=== PATIENT | female | born 1925 | race Caucasian/White ===

== ENCOUNTER 2016-12-17 06:00 | Inpatient (IN) ==
[~2016-12-17 06:00] MED LIST: ONDANSETRON 4 MG/2 ML VIAL IV PRN
[2016-12-17 08:29] LABS: Basophils % 1.2 % (0.0-0.8); Eosinophils # 0.2 10*3/uL (0.0-0.87); Eosinophils % 5.8 % (0.00-10.9); Hematocrit 36.6 VOL% (35.7-47.0); Hemoglobin 11.9 GM/DL (12.0-16.0); Immature Granulocytes % 0.3 %; Immature Granulocytes Absolute 0.01 #; Lymphocytes # 1.3 10*3/uL (1.4-4.0); Lymphocytes % 37.3 % (21.3-54.2); Mean Corpuscular HGB Conc 32.5 GM/DL (32-36); Mean Corpuscular Hemoglobin 29 PG (27-34); Mean Corpuscular Volume 89.3 FL (87-102); Mean Platelet Volume 10.1 FL (9.6-12.0); Monocytes # 0.4 10*3/uL (0.11-0.8); Monocytes % 11.4 % (1.7-12.7); Neutrophils # 1.5 10*3/uL (1.4-7.4); Platelet Count 184 T/CUMM (130-400); Red Cell Distribution Width 13.8 % (9.3-17.3); White Blood Count 3.4 T/CUMM (4-12)
[2016-12-17 09:01] LABS: Albumin 3.3 G/DL (3.4-5.0); Bilirubin,Total 0.6 MG/DL (0.2-1.0); Free T4 (Free Thyroxine) 1.15 NG/DL (0.76-1.46); Magnesium 2.4 MG/DL (1.8-2.4); Osmolality,Calculated 285.8 MOS/KG (273-304); Potassium 4.1 MMOL/L (3.5-5.1); Thyroid Stimulating Hormone 0.918 uIU/ml (0.358-3.74)
[2016-12-17] MEDS: DEXTROSE 5% NACL 0.45% 1,000 ML IV SCH ×2 (09:22→09:23)
--- NOTE | 2016-12-17 10:32 | Order Completion Report ---
See report scanned to EMR
--- NOTE | 2016-12-17 11:32 | Pulmonology History & Physical ---
History of Present Illness Chief complaint: Vomiting 6 or more times per day History of present illness: Ms. Ford is a 89 year old white female from [facility]. I saw this patient in my office 12/04/2016. At that time she was complaining of nausea vomiting weight loss she had abnormal red blood cell indices and she had iatrogenic hyperthyroidism. It was hard to pin her down but she was basically having significant gastroesophageal reflux. The reflux material was described as foamy and white. She has some nonspecific abdominal pain which seemed to be sporadic and of short duration and seem to occur before the gastroesophageal reflux. She said Librax may have helped some but she was not sure. She has had weight loss over the past year. An admission to the hospital in April 2015 she weighed 164.6 pounds. This admission she weighs 135 pounds. So that is approximately 30 pounds over the past 1-1/2 years. At the time of her office visit on 12/04/2016. I stop asked her to stop her Aricept. Note that she has a very strong family history of Alzheimer's disease. She was on Synthroid 0.15 mg daily and her TSH was decreased and her free T4 was elevated. I cut her dose back to 150 mcg on Wednesdays and Fridays and today's TSH and free T4 are normal. I also discontinued her Lipitor. Her daughter said she had read that Benicar could cause weight loss. I think this is probably secondary to change of taste but we stopped it. Patient was not taken her Coreg on a regular basis because he would get stuck in her mouth because of pill is sticky when his wet so I asked her to take this with peanut butter. Patient's daughters called several times and said the patient is not eating and looks terrible. The patient is not able to eat several times a day. Sometimes she vomits shortly afterwards and sometimes she does not. She is to have a bowel movement every day now she has one every third day she is noting no abnormalities of the stools. She also has episodes of repetitive vomiting without having eaten anything prior to the vomiting. For example she said several nights ago she got up to go to the bathroom during the night and vomited 3 times within a short period of time. What she vomits up is always sinus foamy and clear and sticky. She has seen no blood. 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 She says after she vomits she feels fairly normal. The patient denies solid dysphagia she denies bleeding from any site. There has been no true syncope. It does not seem to be a problem with headaches. As far as I can tell there have been no TIAs and no seizure activity. She denies anything suggestive of cardiac pain or cardiac arrhythmia. The remainder of the review of systems is negative. Patient's allergies . Penicillin. Demerol. Norvasc. Lipitor caused skeletal muscle pain. Latex caused a rash. Tigan, Compazine and Reglan caused her to be shaky. Patient did not report all of these allergies to the admitting staff but these are present on the therapy review of her old chart Home medicines are. Synthroid 150 mcg on Wednesdays and Fridays. Benicar has been stopped. Atrovent nasal spray. Flonase nasal spray. Pepcid 20 mg twice daily. Plavix 75 mg daily. Coreg 3.125 daily. Lipitor 40 daily has been stopped. Aspirin 81 mg daily lips been stopped. Flu vaccination was given 2016. Pneumovax was given 1997 Past history. Rheumatoid arthritis. Reflux esophagitis. Gastroesophageal reflux disease. Colon polyps. Hypothyroidism. Iatrogenic hyperthyroidism. History of hyperparathyroidism history of iron deficiency anemia. Tonsillectomy 1964. Hysterectomy and repair of umbilical hernia in 1964. Appendectomy 1946. 2 large parathyroid tumors removed at [facility] in 1994. She was treated with radioactive iodine around that time. She has had a broken nose broken arm in a shoulder fracture. She had left knee surgery for torn meniscus in 2011. In the past she was followed by Dr. Garg at the [facility] from a rheumatology standpoint. She was also followed by Dr. Montes from an endocrinology standpoint. Because this was a long trip she switched to Dr. Holly Alfredo for endocrinology and Dr. Bob Moore for rheumatology. In the past she has had breast cyst removed by Dr. Tone Davidson. The patient was hospitalized in April 2015 for possible chest pain. She has arteriosclerotic heart disease and she had a stent placed in April 2015. 09/13/[address] a CT of the abdomen and pelvis. This showed a mass lesion in the left posterior pelvis measuring 5.3 x 3.0 x 4.4 cm. This was thought to possibly be an ovarian mass. Ultrasound later showed this to be cystic. There was minimal diverticulosis without any diverticulitis. There is vascular calcification and mild facet arthropathy of the lumbar spine seen. The pelvic ultrasound was done 10/18/2016 and showed a complex cystic area in the left adnexa. 12/10/2013 bone density showed an AP spine T score of -2.0 and a femur T score of -1.3 all consistent with osteopenia. This represents an improvement compared to previous studies. The patient gets yearly mammograms and these have been negative Social history. Patient says her [id number] Marla Regalado has seen me in the past. The patient is retired housewife. She had one year of college and she went to many seminars. She had voice training. She is complaining in the past she can no longer saying. 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 On 08/23/2015 she told me her [place] Ford in May 2015. She told me that her daughter never uses [facility] because of high [facility] treated Mr. Ford. Family history. Positive for thyroid disease, deafness, colon polyps, arthritis and sudden . Her of prostate cancer. and daughter have had kidney stones. The great grandson had a brain tumor. On 05/09 the patient told me that her doctors become from [facility] in [facility] studying her family because it is large and there is a high incidence of Alzheimer's disease Lab. White count is 3444 segs, 37 lymphs, 11 monos, 6 eosinophils. H&H 11.9/ 36.6 with normal indices and red blood cell distribution width. Platelets 184, 000 with normal MPV. Electrolytes are normal. Creatinine is 1.2. BUN is 26. Glucose is 81. Liver function tests are normal protein is low at 6.0 and albumin is slightly low at 3.3 globulin is 2.7. Thyroid function tests are normal. No other labs available. Physical exam. Vital signs. See below. Psychiatric oriented 3. Intelligent pays attention and does fairly well with a history but we have to drag it out of her. Her short-term memory is only fair. Head eyes ears nose and throat are normal. Note that the daughter says she appears to be jaundiced. Total bilirubin is 0.6 Neck is symmetrical kyphotic with no masses. Patient has thickened soft tissue over the right anterior neck which been present on a multiyear basis. Lymphatics no submandibular cervical supraclavicular or epitrochlear adenopathy Chest. Symmetrical and wheeze free with no tender areas Heart. PMI slightly lateral. I do not hear murmur rub or gallop Breast deferred Abdomen. Slight tenderness in the periumbilical area. No mass-effect. Aorta was not palpated. Bowel sounds are normal and rectal deferred Extremities no clubbing no edema no deep venous thrombophlebitis Musculoskeletal. Mild age-appropriate loss normal curvature cervical thoracic lumbar spine met neck is somewhat short. Arterials. Carotids are decreased with no bruits. Upper extremity pulses are palpable. Lower extremity pulses are nonpalpable. No evidence of lower extremity ischemia. Venous exam neck upper and lower extremities are normal. Skin prep over the dorsum of both upper extremities no lesions on the face. See neck. No other areas of skin were examined. Neurological. Cranial nerves are intact with some mild to moderate decreased hearing acuity bilaterally long track motor function is intact. The remainder the physical exam is noncontributory Impression. 1. Intractable acute and recurrent nausea with decreased ability to eat and drink. Etiology undetermined. Seems to originate from the stomach. Consider delayed gastric emptying and pylorospasm. No past history of gastroesophageal reflux disease. Look for evidence of pancreatic dysfunction and look for evidence of cancer. We will also look at other areas including the central nervous system. 2. Left adnexal mass on CT of the abdomen done in August 2016 and ultrasound of the pelvis done October 2016. Repeat studies and compare. 3. Hypothyroid. Euthyroid on replacement. 4. Hypertension. Good control 5. Asthma. Good control 6. Rheumatoid arthritis and degenerative joint disease. Good control 7. 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 8. History of iron deficiency anemia 9. Arteriosclerotic heart disease. Stent placed April 2015. 10. Strong family history of Alzheimer's disease. See family history. 11. Past history of gastroesophageal reflux was suspected microaspiration exacerbating pulmonary problems. 12. History of 2 large parathyroid tumors previously removed in 1994 to Plan. 1. IV fluids 2. CT of the abdomen and pelvis with contrast 3. CT of the brain with contrast 4. GI consultation. 5. CA 125 and CA 19-9 6. Amylase and lipase 7. PTH, phosphorus 8. See Home Medications Medication Instructions Recorded Confirmed Type Olmesartan Medoxomil [Benicar] 40 mg PO DAILY 04/19/15 10/22/15 History Carvedilol [Coreg] 3.125 mg PO BID #60 tablet 04/22/15 10/22/15 Rx Clopidogrel [Plavix] 75 mg PO DAILY #30 tablet 04/22/15 10/22/15 Rx Aspirin [Ecotrin] 81 mg PO DAILY 10/22/15 10/22/15 History Atorvastatin [Lipitor] 40 mg PO DAILY 10/22/15 10/22/15 History Famotidine Tab [Pepcid Tab] 20 mg PO BID 10/22/15 10/22/15 History Fluticasone Propionate 2 spray BOTH NARES DAILY 10/22/15 10/22/15 History [Fluticasone 50 mcg Nasal [place]] Ipratropium 0.06% Nasal [place] 2 spray BOTH NARES TID 10/22/15 10/22/15 History [Atrovent 0.06% Nasal [place]] Levothyroxine Tab [Synthroid Tab] 150 mcg PO DAILY 10/22/15 10/22/15 History Allergies Allergy/AdvReac Type Severity Reaction Status Date / Time latex Allergy Intermediate RASH Verified 04/21/15 10:37 Penicillins Allergy RASH Verified 04/19/15 13:45 metoclopramide [From Reglan] AdvReac Severe Shakiness Verified 04/21/15 10:37 meperidine [From Demerol] AdvReac Vomiting Verified 04/19/15 13:45 prochlorperazine AdvReac Shakiness Verified 04/21/15 10:37 [From Compazine] Trimethobenzamide AdvReac Shakiness Verified 04/21/15 10:37 [From Tigan] Medical,Surgical,& Family Hx - Medical History Cardio: History of: CAD, Hypertension Endocrine: History of: Dyslipidemia, Thyroid Disorder Respiratory: History of: Bronchitis - Surgical History Cardiac Surgeries: Sugical HX of: Cardiac Catheterization (stent x's 1) Abdominal Surgeries: Surgical HX of: Abdominal Surgery Reproductive Surgeries: Surgical HX of;: Hysterectomy Orthopedic Surgeries: Surgical HX of;: Total Knee Replacement - Social History Smoking Status: Never smoker Frequency of Alcohol Use: None Type of Drug Use: None Results - Labs CBC & BMP: 12/17/16 07:45 12/17/16 07:45 Exam ([facility]) H&P - Constitutional Vitals: Period Temp Pulse Resp BP Sys/House Pulse Ox Last 24 Hr 97.5 F 53 18 153/59 95
[2016-12-17] MEDS: CARVEDILOL 3.125 MG TABLET PO SCH ×2 (12:00→21:03)
[2016-12-17] MEDS: FAMOTIDINE 20 MG TABLET PO SCH ×2 (12:00→21:03)
--- NOTE | 2016-12-17 12:14 | Gastrointestinal Consult Note ---
<Ginger Newberry - Last Filed: 12/17/16 12:08> Assessment and Plan (1) Abdominal pain Status: Acute Assessment and plan: 12/17-admitted with several month history of abdominal pain (epigastric), nausea and vomiting episodes. 60 pound weight loss in the last year and a half. Prior endoscopy done at endoscopic clinic. No prior history of gallbladder disease reported. Noted findings on CT in August of left pelvic mass, post oophorectomy. Scheduled for follow-up ultrasound this week. CT of abdomen pending for today. Obtain abdominal ultrasound as well as go ahead and obtain pelvic ultrasound in the morning to send to Dr. Davidson at the same time. Plan an addendum to followed by Dr. Brooke. Current Visit: Yes History of Present Illness Chief complaint: Abdominal pain, nausea, vomiting History of present illness: Ms. Ford is a 89 year old female who was admitted to the hospital today for several month history of abdominal pain with associated nausea and vomiting. Patient is a fairly good historian however her daughter is at bedside and assists in history taking. Patient has a prior history of RA, iron deficiency anemia, hyperthyroidism, and hyperparathyroidism. Patient states that in March of this year she began having onset of some upper abdominal pain with associated nausea and vomiting type episodes. She states that the pain many times was precipitated by ingestion of a meal. She states that this and she would eat, she would have a cramping sensation in her epigastric region with nausea and some regurgitation of what she calls clear fluid are at times frothy white fluid. She states that this is gone on for several months at times worse than others. She reports that she has lost approximately 60 pounds over the last year and a half. Her spouse 2 years ago when she does report a decreased appetite and intake but relates this to not fixing food for herself daily. Patient states that she has had no changes in her bowel habits other than some constipation due to decreased intake. She denies any melena or hematochezia. She denies any coffee-ground emesis or hematemesis. She denies any NSAID use. She denies any dysphagia or dyspepsia symptoms. She is noted to have Plavix on her home medication list but states this was discontinued 2-3 months ago in which she was originally placed on this following an NC. She has had endoscopy done in the past by Dr. Ford at the endoscopic clinic but states it has been several years. She does not recall having an upper scope in the past however her last colonoscopy showed colon polyps which were removed. Patient had a CT of the abdomen done in August and at that time she was found to have a left pelvic mass which was initially felt to be potentially a malignancy however she is followed regularly by Dr. Davidson for this. Her last ultrasound in October showed this to be a complex cystic area. She is scheduled later this week for repeat ultrasound. Home Medications Medication Instructions Recorded Confirmed Type Olmesartan Medoxomil [Benicar] 40 mg PO DAILY 04/19/15 10/22/15 History Carvedilol [Coreg] 3.125 mg PO BID #60 tablet 04/22/15 10/22/15 Rx Clopidogrel [Plavix] 75 mg PO DAILY #30 tablet 04/22/15 10/22/15 Rx Aspirin [Ecotrin] 81 mg PO DAILY 10/22/15 10/22/15 History Atorvastatin [Lipitor] 40 mg PO DAILY 10/22/15 10/22/15 History Famotidine Tab [Pepcid Tab] 20 mg PO BID 10/22/15 10/22/15 History Fluticasone Propionate 2 spray BOTH NARES DAILY 10/22/15 10/22/15 History [Fluticasone 50 mcg Nasal [place]] Ipratropium 0.06% Nasal [place] 2 spray BOTH NARES TID 10/22/15 10/22/15 History [Atrovent 0.06% Nasal [place]] Levothyroxine Tab [Synthroid Tab] 150 mcg PO DAILY 10/22/15 10/22/15 History Allergies Allergy/AdvReac Type Severity Reaction Status Date / Time Penicillins Allergy RASH Verified 12/17/16 17:11 atorvastatin [From Lipitor] AdvReac Muscle Pain Verified 12/17/16 17:11 meperidine [From Demerol] AdvReac Vomiting Verified 12/17/16 17:11 Medical,Surgical,& Family Hx - Medical History Cardio: History of: CAD, Hypertension Endocrine: History of: Dyslipidemia, Thyroid Disorder Respiratory: History of: Bronchitis - Surgical History Cardiac Surgeries: Sugical HX of: Cardiac Catheterization (stent x's 1) Abdominal Surgeries: Surgical HX of: Abdominal Surgery Reproductive Surgeries: Surgical HX of;: Hysterectomy Orthopedic Surgeries: Surgical HX of;: Total Knee Replacement - Social History Smoking Status: Never smoker Frequency of Alcohol Use: None Type of Drug Use: None 12 point system: reviewed and no additional remarkable complaints except as stated - Constitutional Constitutional: Present: as per HPI, weight loss - EENT Eyes: Present: as per HPI Ears: Present: as per HPI Nose, mouth and throat: Present: as per HPI - Cardiovascular Cardiovascular: Present: as per HPI - Respiratory Respiratory: Present: as per HPI - Gastrointestinal Gastrointestinal: Present: as per HPI, abdominal pain, dysphagia, heartburn, nausea, vomiting - Genitourinary Genitourinary: Present: as per HPI - Musculoskeletal Musculoskeletal: Present: as per HPI - Neurological Neurological: Present: as per HPI - Psychiatric Psychiatric: Present: as per HPI - Endocrine Endocrine: Present: as per HPI - Hematologic/Lymphatic Hematologic/Lymphatic: Present: as per HPI Exam - Constitutional Vitals: Period Temp Pulse Resp BP Sys/House Pulse Ox Last 24 Hr 97.5 F 53 18 153/59 95 General appearance: normal weight, no acute distress - Head Head exam: Present: normal inspection, normocephalic - Eye Eye exam: Present: other (Lids and conjunctivae are unremarkable). Absent: scleral icterus - ENT ENT exam: Present: normal exam, normal oropharynx - Neck Neck exam: Present: normal inspection - Respiratory Respiratory exam: Present: clear to auscultation bilaterally. Absent: rales, rhonchi, wheezes - Cardiovascular Cardiovascular exam: Present: regular rate and rhythm. Absent: diastolic murmur , JVD, systolic murmur - GI/Abdominal GI/Abdominal exam: Present: normal bowel sounds, soft. Absent: ascites, distended, mass, organomegaly, tenderness - Extremities Exam Extremities exam: Present: normal inspection, full ROM - Back Exam Back exam: Present: normal inspection - Neurological Exam Neurological exam: Present: alert, oriented X3 - Psychiatric Psychiatric exam: Present: normal affect, normal mood - Skin Skin exam: Present: normal color, warm, dry Results - Labs CBC & BMP: 12/17/16 07:45 12/17/16 07:45 Lab Results: I have reviewed the past 24 hour labs <Misbah Brooke - Last Filed: 12/17/16 22:18> History of Present Illness History of present illness: Ms. Ford is a 89 year old female Exam - Constitutional Vitals: Period Temp Pulse Resp BP Sys/House Pulse Ox Last 24 Hr 97.3 F-98.2 F 49-54 16-18 132-175/53-64 95-98 Results - Labs CBC & BMP: 12/17/16 07:45 12/17/16 07:45
[2016-12-17] MEDS ORDERED: DICLOFENAC 1.3% PATCH 5/PACK TRANSDERM SCH (13:00)
[2016-12-17 13:40] LABS: Parathyroid Hormone Intact 97.7 PG/ML (14-72)
[2016-12-17 13:51] LABS: Phosphorous 2.3 MG/DL (2.5-4.9)
[2016-12-17 14:31] LABS: Cancer Antigen 19-9 5.1 U/ML (0-37)
[2016-12-17] MEDS: DICLOFENAC 1.3% PATCH 5/PACK TRANSDERM SCH ×2 (14:54→21:03)
[2016-12-17] MEDS: FLUTICASONE 50 MCG NASAL SPRAY 16 GM BOTTLE BOTH NARES SCH (14:56)
[2016-12-17] MEDS: IPRATROPIUM 0.06% NASAL SPRAY 15 ML BOTTLE BOTH NARES SCH (14:57)
[2016-12-17] MEDS: CLOPIDOGREL 75 MG TABLET PO SCH (15:00)
[2016-12-17 15:38] LABS: Apearance,Urine CLEAR (Clear); Bilirubin,Urine Negative (Negative); Blood, Urine Negative (Negative); Glucose,Urine (UA) Negative (Negative); Ketones,Urine Negative (Negative); Mucus,Urine Occasional /LPF (Occasional); Nitrite,Urine Negative (Negative); Protein,Urine Negative; Squamous Epithelial Cell,Urine Occasional /HPF (0-10); Urine Color Straw (Yellow); Urine Specific Gravity 1.005 (1.001-1.035); Urine Urobilinogen < 2.0 EU/DL (0.2-1.0); WBC,Urine <1 /HPF (0-6)
--- NOTE | 2016-12-17 15:39 | CT Report ---
CT head/brain wo con Indication: Persistent nausea Comparison: CT brain dated October 24, 2015 Technique: Multiple axial tomographic images of the brain were obtained without the use of intravenous contrast. Findings: Midline structures are nondisplaced. There is no convincing evidence of acute intracranial hemorrhage . Moderate global volume loss present. Mild periventricular and subcortical hypoattenuation noted which is nonspecific but consistent with chronic microvascular ischemic change. Demyelinating process and vasculitis less likely considerations. Atherosclerotic calcifications demonstrated. The visualized paranasal sinuses and bilateral mastoid air cells are predominantly clear. IMPRESSION: No acute intracranial abnormality demonstrated. Probable chronic microvascular ischemic change and volume loss. The CT exam was performed using one or more of the following dose reduction techniques: Automated exposure control, adjustment of the mA and/or kV according to patient size, or use of iterative reconstruction technique. PROCEDURE INTERPRETED AT [facility] DEPARTMENT OF RADIOLOGY Final Report Signed by: Dr Hilario Horowitz
--- NOTE | 2016-12-17 16:19 | CT Report ---
Exam: CT abdomen and pelvis with intravenous contrast Exam date: 12/17/2016 3:24 PM Clinical History: 89 years,Female, persistent nausea and abdominal pain, generalized Technique: Axial computed tomography images of the abdomen and pelvis with intravenous contrast. All CT scans at this facility use one or more dose reduction techniques. Automated exposure control, MA/KV adjustment per patient size (including targeted exam Square dose is matched to indication) or iterative reconstruction technique Comparison: September 13, 2016 Findings: Lower thorax: No acute pathology within the lung bases. Abdomen: Liver: Mildly enlarged and hypoattenuating. Simple cyst are unchanged. Gallbladder and bile ducts: Question small stones and/or sludge within a normal-appearing gallbladder. Pancreas: Pancreas is normal. Spleen: Spleen is normal. Adrenals: No adrenal mass. Kidneys and ureters: No stones. Stomach and bowel: No hydronephrosis scattered colonic diverticula. No associated inflammatory changes. Appendix: No secondary findings to suggest appendicitis. Pelvis: Bladder: Partially decompressed Reproductive: Prior hysterectomy. 5.3 x 2.7 cm left adnexal cyst results in mild mass effect on the distal left ureter . Abdomen and pelvis: Intraperitoneal space: No pneumoperitoneum. No free intraperitoneal fluid Bones/joints: Degenerative changes throughout the lower lumbar facets, sacroiliac joints and symphysis.. Soft tissues: No mass Vasculature: No aortic aneurysm. Atheromatous calcifications noted along the aorta and branch vessels. Lymph nodes: No adenopathy Impression: 1. Diverticulosis coli 2. Hepatomegaly with steatosis 3. Question cholelithiasis, correlate with dedicated ultrasound 4. Stable left adnexal cyst PROCEDURE INTERPRETED AT [facility] DEPARTMENT OF RADIOLOGY Final Report Signed by: Vinicius Kim MD
[2016-12-17] MEDS: ASPIRIN EC 81 MG TABLET PO SCH (16:56)
[2016-12-18] MEDS: IPRATROPIUM 0.06% NASAL SPRAY 15 ML BOTTLE BOTH NARES SCH ×4 (00:22→21:04)
[2016-12-18] MEDS: DEXTROSE 5% NACL 0.45% 1,000 ML IV SCH ×3 (00:55→16:05)
[2016-12-18] MEDS: FLUTICASONE 50 MCG NASAL SPRAY 16 GM BOTTLE BOTH NARES SCH (08:18)
[2016-12-18] MEDS: CARVEDILOL 3.125 MG TABLET PO SCH ×2 (08:18→20:47)
[2016-12-18] MEDS: FAMOTIDINE 20 MG TABLET PO SCH ×2 (08:18→20:47)
[2016-12-18] MEDS: ASPIRIN EC 81 MG TABLET PO SCH (08:18)
[2016-12-18] MEDS: LEVOTHYROXINE 150 MCG TABLET PO SCH (08:18)
[2016-12-18] MEDS: CLOPIDOGREL 75 MG TABLET PO SCH (08:18)
--- NOTE | 2016-12-18 08:26 | Ultrasound Report ---
US transvaginal Indication: History of left pelvic cystic mass Comparison: Pelvic ultrasound October 18, 2016 Technique: Multiple longitudinal and transverse sonographic images of the pelvis were obtained with transabdominal probe. Transvaginal probe was then utilized for further evaluation secondary to poor imaging with transabdominal probe. Findings: History of prior hysterectomy. Right ovary not visualized. Patient states left ovary was removed. There is a complex cystic mass within the left adnexal region measuring up to 4.8 x 2.3 x 3.2 cm. Considering change in technique, this has not significantly changed from study dated October 18, 2016 IMPRESSION: As above. PROCEDURE INTERPRETED AT [facility] DEPARTMENT OF RADIOLOGY Final Report Signed by: Dr Hilario Horowitz
--- NOTE | 2016-12-18 08:31 | Ultrasound Report ---
US abdomen Indication: Abdominal pain, nausea vomiting Comparison: CT abdomen pelvis December 17, 2016 Technique: Multiple longitudinal and transverse real-time sonographic images of the abdomen are obtained. Findings: The liver measures 16 cm. A couple of small hepatic cysts are demonstrated measuring up to 1.4 and 0.9 cm respectively. These are located within the left hepatic lobe. Small-volume cholelithiasis. There is no significant gallbladder distention or wall thickening. The common bile duct measures 0.5 cm in diameter. There is no evidence of intrahepatic ductal dilatation. The right and left kidneys measure 9.6 cm and 9.7 cm, respectively. There is no evidence of hydronephrosis. Hyperechoic renal parenchyma suggestive of medical renal disease with some cortical thinning. The spleen measures 10.5 cm without focal abnormality. Evaluation of the pancreas limited secondary to bowel gas.. IVC and aorta: Visualized portions grossly unremarkable.. No evidence of ascites. IMPRESSION: 2 small hepatic cysts within the left lobe, the largest measuring up to 1.4 cm. Small-volume cholelithiasis. There is no significant gallbladder distention or wall thickening. Medical renal disease/renal atrophy without evidence of hydronephrosis. PROCEDURE INTERPRETED AT [facility] DEPARTMENT OF RADIOLOGY Final Report Signed by: Dr Hilario Horowitz
[2016-12-18] MEDS ORDERED: LIDOCAINE 100 MG/5 ML SYRINGE ONE (09:00)
[2016-12-18] MEDS ORDERED: PROPOFOL 200 MG/20 ML VIAL IV ONE (09:00)
--- NOTE | 2016-12-18 11:07 | Operative Note ---
Date of procedure: 12/18/16 Pre-op diagnosis: Abdominal pain and nausea Procedure: EGD with biopsy 89-year-old female with epigastric pain and persistent nausea now for upper endoscopy to further evaluate. Informed consent was obtained for the patient She was sedated with general anesthesia per anesthesia protocol. Patient placed left lateral decubitus position the Olympus flexible video upper endoscope was inserted oral cavity under direct vision esophagus intubated. Findings: Esophagus-normal proximal mid esophageal mucosa no significant stricture seen Stomach-normal insufflation there is diffuse gastritis no ulcers seen to direct retroflexed views of the body fundus cardia or antrum of the stomach Pylorus-normal Duodenum-normal for the bulb and duodenum to the third portion of the duodenum. Biopsies of the gastritis were obtained. The procedure terminated patient was discharged recovery good condition Postop diagnosis: 1. [id number] biopsy-positive for H. pylori we will treat continue PPI treatment 2. Follow-up ultrasound when available for possible cholelithiasis. If no improvement over the next 2-3 weeks from treatment of her gastritis will need to consider cholecystectomy if stones present Anesthesia: other (General) Surgeon / Physician: Misbah Brooke Estimated blood loss: none Specimens: other (Gastritis) Condition: stable Disposition: post procedure unit Results - Labs CBC & BMP: 12/17/16 07:45 12/17/16 07:45 Discharge Plan - Discharge Medications No Action Olmesartan Medoxomil [Benicar] 40 mg PO DAILY Carvedilol [Coreg] 3.125 mg PO BID #60 tablet Clopidogrel [Plavix] 75 mg PO DAILY #30 tablet Famotidine Tab [Pepcid Tab] 20 mg PO BID Levothyroxine Tab [Synthroid Tab] 150 mcg PO DAILY Atorvastatin [Lipitor] 40 mg PO DAILY Fluticasone Propionate [Fluticasone 50 mcg Nasal [place]] 2 spray BOTH NARES DAILY Ipratropium 0.06% Nasal [place] [Atrovent 0.06% Nasal [place]] 2 spray BOTH NARES TID Aspirin [Ecotrin] 81 mg PO DAILY - Follow Up or Referral - Forms/Instructions
--- NOTE | 2016-12-18 11:10 | Anesthesia Post-Op ---
Anesthesia Post OP - Post Ansesthetic Evaluation Patient seen in post op: Yes Resp: within normal limits CV: within normal limits Mental: within normal limits Temp: within normal limits [id number]: within normal limits Nausea and Vomiting: within normal limits Pain: within normal limits
--- NOTE | 2016-12-18 11:27 | Pulmonology Progress Note ---
Pulmonary - PN: Subj Interval history: Uriahjerald CaleroAliya, AGPCNP-BC, acting as scribe for Dr. Tobias Henry Ms. Ford is an 89-year-old white female who was direct admitted 12/17/2016. At the time of admission, our impressions were: 1. Intractable acute and recurrent nausea with decreased ability to eat and drink. Etiology undetermined. Seems to originate from the stomach. Consider delayed gastric emptying and pylorospasm. No past history of gastroesophageal reflux disease. Look for evidence of pancreatic dysfunction and look for evidence of cancer. We will also look at other areas including the central nervous system. 2. Left adnexal mass on CT of the abdomen done in August 2016 and ultrasound of the pelvis done October 2016. Repeat studies and compare. 3. Hypothyroid. Euthyroid on replacement. 4. Hypertension. Good control 5. Asthma. Good control 6. Rheumatoid arthritis and degenerative joint disease. Good control 7. 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 8. History of iron deficiency anemia 9. Arteriosclerotic heart disease. Stent placed April 2015. 10. Strong family history of Alzheimer's disease. See family history. 11. Past history of gastroesophageal reflux was suspected microaspiration exacerbating pulmonary problems. 12. 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 Patient was seen today along with her daughter and Sveta Huitron RN. The patient has been seen in GI consultation by Dr. Brooke. His note has been reviewed. He is planning on EGD this morning. The patient does report that she has not been "sick" since her arrival here. CT of the abdomen and pelvis showed diverticulosis coli, hepatomegaly with steatosis, questionable cholelithiasis, and a stable left adnexal cyst. CT of the head was done secondary to persistent nausea. This showed no acute intracranial abnormality, but probable chronic microvascular ischemic changes and volume loss. Ultrasound of the abdomen showed 2 small hepatic cyst within the left lobe with the largest measuring up to 1.4 cm. There was also a small volume cholelithiasis but no significant gallbladder distention or wall thickening. Also present was medical renal disease/renal atrophy without evidence of hydronephrosis. Transvaginal ultrasound showed a complex cystic mass within the left adnexal region measuring up to 4.8 x 2.3 x 3.2 cm. The radiologist, Dr. Lor, noted that considering changes in technique this ultrasound has not significantly changed from study dated 10/18/2016. As noted above, the patient has history of 2 large parathyroid tumors and hyperparathyroidism. PTH is elevated at 97.7, and we are going to consult Dr. Saavedra regarding this. CA-19- 9 is normal at 5.1. CA 125 is pending. Amylase and lipase are both normal at 40 and 117 respectively. Phosphorus is low at 2.3. We are also going to obtain a vitamin D level today. The patient listed Plavix as high medicine, however, on review of previous cardiology notes this medication was stopped by Dr. Hirsch approximately 2-3 months ago. We have again discontinued this medication. It was held yesterday. Medications been reviewed. Plavix discontinued as above. Labs been reviewed. Phosphorus 2.3, amylase 40, lipase 117, CA-19-9 5.1, TSH 0.918 and free T4 1.15, intact PTH 97.7; urinalysis showed no evidence of infection Exam (Progress Note) - Constitutional Vitals: Period Temp Pulse Resp BP Sys/House Pulse Ox Last 24 Hr 97.3 F-98.2 F 49-63 16-20 126-175/53-72 94-98 Exam: Chest is wheeze free Heart with a slight lateral PMI but without murmur, rub, or gallop Abdomen with slight tenderness in periumbilical area without mass-effect; bowel sounds are positive 4 Extremities with nothing to suggest acute deep venous thrombophlebitis Psychiatric oriented 3 Neurologic long-term motor function is intact Plan: Consult Dr. Saavedra regarding elevated PTH. Vitamin D level today. Stop Plavix. Follow-up EGD results when available. See orders. Results - Labs CBC & BMP: 12/17/16 07:45 12/17/16 07:45
[2016-12-18] MEDS: DICLOFENAC 1.3% PATCH 5/PACK TRANSDERM SCH ×2 (12:31→20:51)
[2016-12-19] MEDS: LEVOTHYROXINE 150 MCG TABLET PO SCH (06:13)
[2016-12-19] MEDS: DEXTROSE 5% NACL 0.45% 1,000 ML IV SCH ×2 (08:25→20:58)
--- NOTE | 2016-12-19 08:48 | Gastrointestinal Progress Note ---
<Ginger Newberry - Last Filed: 12/19/16 08:46> Assessment and Plan (1) Abdominal pain Status: Acute Assessment and plan: 12/19-no complaints of pain, nausea or vomiting. Tolerating diet very well. Ultrasound results noted as below. H. pylori biopsy pending. Plan an addendum to followed by Dr. Brooke. 12/17-admitted with several month history of abdominal pain (epigastric), nausea and vomiting episodes. 60 pound weight loss in the last year and a half. Prior endoscopy done at endoscopic clinic. No prior history of gallbladder disease reported. Noted findings on CT in August of left pelvic mass, post oophorectomy. Scheduled for follow-up ultrasound this week. CT of abdomen pending for today. Obtain abdominal ultrasound as well as go ahead and obtain pelvic ultrasound in the morning to send to Dr. Davidson at the same time. Plan an addendum to followed by Dr. Brooke. Current Visit: Yes Gastroenterology - PN: Subj Interval history: CC: Abdominal pain/nausea Patient is seen awake and alert with daughter at bedside. States she had an uneventful night and rested well. She had EGD on yesterday with findings of gastritis with biopsy for H. pylori pending. She states that she tolerated advancement of her diet from clear liquids to soft diet without any abdominal pain, nausea or vomiting. She states overall she is feeling much better. Abdominal ultrasound yesterday shows small volume cholelithiasis without cholecystitis findings with common bile duct at 0.5 cm and no ductal dilatation. Her pelvic ultrasound results are also noted with no changes in the cystic mass. Her tumor markers have been negative thus far. We will have her pelvic ultrasound results sent to Dr. Davidson since this was scheduled for next week. Abdomen is soft, nontender. ROS: Denies shortness of breath or chest pain Exam (Progress Note) - Constitutional Vitals: Period Temp Pulse Resp BP Sys/House Pulse Ox Last 24 Hr 97.3 F-98.3 F 52-63 16-20 118-171/59-92 94-99 General appearance: normal weight, no acute distress - Head Head exam: Present: normal inspection, normocephalic - Eye Eye exam: Present: other (Lids and conjunctive are unremarkable). Absent: scleral icterus - ENT ENT exam: Present: normal exam, normal oropharynx - Neck Neck exam: Present: normal inspection - Respiratory Respiratory exam: Present: clear to auscultation bilaterally. Absent: rales, rhonchi, wheezes - Cardiovascular Cardiovascular exam: Present: regular rate and rhythm. Absent: diastolic murmur , JVD, systolic murmur - GI/Abdominal GI/Abdominal exam: Present: normal bowel sounds, soft. Absent: ascites, distended, mass, organomegaly, tenderness - Extremities Exam Extremities exam: Present: normal inspection, full ROM - Back Exam Back exam: Present: normal inspection - Neurological Exam Neurological exam: Present: alert, oriented X3 - Psychiatric Psychiatric exam: Present: normal affect, normal mood - Skin Skin exam: Present: normal color, warm, dry Results - Labs CBC & BMP: 12/17/16 07:45 12/17/16 07:45 Lab Results: I have reviewed the past 24 hour labs <Misbah Brooke - Last Filed: 12/19/16 21:31> Exam (Progress Note) - Constitutional Vitals: Period Temp Pulse Resp BP Sys/House Pulse Ox Last 24 Hr 97.8 F-98.1 F 45-57 16-18 124-156/63-68 95-97 Results - Labs CBC & BMP: 12/17/16 07:45 12/17/16 07:45
[2016-12-19] MEDS: FLUTICASONE 50 MCG NASAL SPRAY 16 GM BOTTLE BOTH NARES SCH (09:53)
[2016-12-19] MEDS: ASPIRIN EC 81 MG TABLET PO SCH (09:53)
[2016-12-19] MEDS: FAMOTIDINE 20 MG TABLET PO SCH ×2 (09:53→20:55)
[2016-12-19] MEDS: CARVEDILOL 3.125 MG TABLET PO SCH ×2 (09:53→20:55)
[2016-12-19] MEDS: IPRATROPIUM 0.06% NASAL SPRAY 15 ML BOTTLE BOTH NARES SCH ×3 (09:54→20:56)
[2016-12-19] MEDS: DICLOFENAC 1.3% PATCH 5/PACK TRANSDERM SCH ×2 (09:58→20:55)
--- NOTE | 2016-12-19 11:07 | Pulmonology Progress Note ---
Pulmonary - PN: Subj Interval history: Uriahjerald CaleroAliya, AGPCNP-BC, acting as scribe for Dr. Tobias Henry Ms. Ford is an 89-year-old white female who was direct admitted 12/17/2016. At the time of admission, our impressions were: 1. Intractable acute and recurrent nausea with decreased ability to eat and drink. Etiology undetermined. Seems to originate from the stomach. Consider delayed gastric emptying and pylorospasm. No past history of gastroesophageal reflux disease. Look for evidence of pancreatic dysfunction and look for evidence of cancer. We will also look at other areas including the central nervous system. 2. Left adnexal mass on CT of the abdomen done in August 2016 and ultrasound of the pelvis done October 2016. Repeat studies and compare. 3. Hypothyroid. Euthyroid on replacement. 4. Hypertension. Good control 5. Asthma. Good control 6. Rheumatoid arthritis and degenerative joint disease. Good control 7. 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 8. History of iron deficiency anemia 9. Arteriosclerotic heart disease. Stent placed April 2015. 10. Strong family history of Alzheimer's disease. See family history. 11. Past history of gastroesophageal reflux was suspected microaspiration exacerbating pulmonary problems. 12. 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 Patient was seen today along with her daughter and Sveta Huitron RN. The patient has been seen in GI consultation by Dr. Brooke. His note has been reviewed. He is planning on EGD this morning. The patient does report that she has not been "sick" since her arrival here. CT of the abdomen and pelvis showed diverticulosis coli, hepatomegaly with steatosis, questionable cholelithiasis, and a stable left adnexal cyst. CT of the head was done secondary to persistent nausea. This showed no acute intracranial abnormality, but probable chronic microvascular ischemic changes and volume loss. Ultrasound of the abdomen showed 2 small hepatic cyst within the left lobe with the largest measuring up to 1.4 cm. There was also a small volume cholelithiasis but no significant gallbladder distention or wall thickening. Also present was medical renal disease/renal atrophy without evidence of hydronephrosis. Transvaginal ultrasound showed a complex cystic mass within the left adnexal region measuring up to 4.8 x 2.3 x 3.2 cm. The radiologist, Dr. Lor, noted that considering changes in technique this ultrasound has not significantly changed from study dated 10/18/2016. As noted above, the patient has history of 2 large parathyroid tumors and hyperparathyroidism. PTH is elevated at 97.7, and we are going to consult Dr. Saavedra regarding this. CA-19- 9 is normal at 5.1. CA 125 is pending. Amylase and lipase are both normal at 40 and 117 respectively. Phosphorus is low at 2.3. We are also going to obtain a vitamin D level today. The patient listed Plavix as high medicine, however, on review of previous cardiology notes this medication was stopped by Dr. Hirsch approximately 2-3 months ago. We have again discontinued this medication. It was held yesterday. Medications been reviewed. Plavix discontinued as above. Labs been reviewed. Phosphorus 2.3, amylase 40, lipase 117, CA-19-9 5.1, TSH 0.918 and free T4 1.15, intact PTH 97.7; urinalysis showed no evidence of infection 12/19/2016. Patient was seen today along with her daughter and Sveta Huitron RN. Yesterday the patient underwent EGD by Dr. Brooke. This showed gastritis and biopsies were taken for H pylori which are pending. Dr. Brooke did note that the patient did not improve with proton pump inhibitors (an H pylori treatment if needed) for the next 2-3 weeks then we need to consider possible cholecystectomy. The ultrasound of the abdomen did show small volume cholelithiasis, so we have ordered a HIDA scan to be done in the morning. Patient's diet has been advanced and last night she was able to eat supper and she ate breakfast this morning and she has had no nausea, vomiting, or diarrhea. Nephrology consultation regarding her elevated PTH is pending. Vitamin D level was 24.4 consistent with insufficiency and we have started vitamin D3 2000 units daily. Medications have been reviewed. Labs been reviewed. Exam (Progress Note) - Constitutional Vitals: Period Temp Pulse Resp BP Sys/House Pulse Ox Last 24 Hr 97.3 F-98.3 F 52-63 16-20 118-161/59-92 94-99 Exam: Chest is wheeze free Heart with a slight lateral PMI but without murmur, rub, or gallop Abdomen with slight tenderness in periumbilical area without mass-effect; bowel sounds are positive 4 Extremities with nothing to suggest acute deep venous thrombophlebitis Psychiatric oriented 3 Neurologic long-term motor function is intact Plan: Follow-up nephrology consultation regarding elevated PTH. Start vitamin D. Stop Plavix. Follow-up H. pylori results when available. HIDA scan in the morning. See orders. Results - Labs CBC & BMP: 12/17/16 07:45 12/17/16 07:45
--- NOTE | 2016-12-19 12:24 | Pathology Report from [facility] ---
[facility] ACCESSION # : [id number] PATIENT NAME : Vandana Ford ORDERING DR : SALOME JACKMAN MD CLINICAL HX: Nausea - Weight loss POST-OP DX: Gastritis SPECIMEN INFO: Gastric GROSS DESCRIPTION: The specimen is received in formalin labeled with the patients name and consists of three pink-[place] mucosal tissue fragments collectively measuring 0.5 x 0.3 cm. Submitted in one cassette. DIAGNOSIS FOR VANDANA FORD: GASTRIC BIOPSY: Chronic gastritis, focally active. H. pylori not seen on H&E or special stain with appropriate control. COLLECTED DATE: 12/18/2016 [facility] REPORT DATE: 12/19/2016 ELECTRONICALLY SIGNED BY: Diamond Puckett M.D. 12/19/2016 - 10:24:08 AURE
[2016-12-19] MEDS: CHOLECALCIFEROL 1,000 UNIT TABLET PO SCH (12:43)
--- NOTE | 2016-12-19 13:46 | Nephrology Consult Note ---
History of Present Illness Chief complaint: Primary hyperparathyroidism History of present illness: Ms. Ford is a 89 year old female who was admitted on 12/17/2016 for abdominal pain nausea and vomiting. Patient states she has been having some of this difficulty since March of this year. The patient started having some constipation problems just a few days ago. We are asked to see the patient for a increased PTH level. The patient's PTH was around 98. She is noted to have a calcium of 10 and a phosphorus of around 2.3. Patient has a history of primary hyperparathyroidism and had 2 hypertrophic parathyroid glands removed in 1994. The patient states she has had hyperparathyroidism for some time now. The patient denied arthritis or bone pain although her daughter states that the patient does have some arthritis. The patient did complain of some sciatic nerve pain. ROS: Head -occasional headaches ENT -occasional sore throat Lymphatics - denies lymphadenopathy Hematology - denies bleeding problems Heart - denies chest pain Lungs - denies shortness of breath Abdomen -positive abdominal pain Musculoskeletal - denies arthritis Skin - denies rash Neurology - denies stroke General - denies fever PE: General: in no acute distress Eyes: Pupils are round and reactive, conjunctivae are clear ENT: Nose is clear, O/P is benign Neck: Supple, no thyromegaly Lymphatics: No cervical, supraclavicular or axillary adenopathy Heart: Regular rate and rhythm, no edema Lungs: Clear to auscultation anteriorly, chest expansion symmetric Abdomen: Soft, normoactive bowel sounds, no hepatomegaly Musculoskeletal: No joint erythema or effusions or joint asymmetry Skin: Normal turgor, normal hydration, no rash Neuro/Psych: Alert and cooperative with fair insight Home Medications Medication Instructions Recorded Confirmed Type Carvedilol [Coreg] 3.125 mg PO BID #60 tablet 04/22/15 12/18/16 Rx Fluticasone Propionate 2 spray BOTH NARES DAILY 10/22/15 12/18/16 History [Fluticasone 50 mcg Nasal [place]] Ipratropium 0.06% Nasal [place] 2 spray BOTH NARES TID 10/22/15 12/18/16 History [Atrovent 0.06% Nasal [place]] Levothyroxine Tab [Synthroid Tab] 150 mcg PO DAILY 10/22/15 12/18/16 History Donepezil [Aricept] 10 mg PO DAILY 12/18/16 12/18/16 History Allergies Allergy/AdvReac Type Severity Reaction Status Date / Time Penicillins Allergy RASH Verified 12/17/16 17:11 atorvastatin [From Lipitor] AdvReac Muscle Pain Verified 12/17/16 17:11 meperidine [From Demerol] AdvReac Vomiting Verified 12/17/16 17:11 Medical,Surgical,& Family Hx - Medical History Cardio: History of: CAD, Hypertension Neurology: No history of: Seizures Endocrine: History of: Dyslipidemia, Thyroid Disorder Respiratory: History of: Bronchitis - Surgical History Cardiac Surgeries: Sugical HX of: Cardiac Catheterization (stent x's 1) Abdominal Surgeries: Surgical HX of: Abdominal Surgery Reproductive Surgeries: Surgical HX of;: Hysterectomy Orthopedic Surgeries: Surgical HX of;: Total Knee Replacement - Family History Additional Family History: Positive for heart disease - Social History Smoking Status: Never smoker Frequency of Alcohol Use: None Type of Drug Use: None Exam - Vital Signs Vital signs: Period Temp Pulse Resp BP Sys/House Pulse Ox Last 24 Hr 97.5 F-98.3 F 45-56 16-18 118-156/60-92 95-98 Results - Labs CBC & BMP: 12/17/16 07:45 12/17/16 07:45 Assessment and Plan (1) Primary hyperparathyroidism Status: Acute Assessment and plan: This patient has mild primary hyperparathyroidism. The patient's calcium is in the high normal range and her phosphorus is slightly decreased. I do not feel this patient's abdominal pain or constipation is related to her primary hyperparathyroidism. Nor do I feel that the patient is suffering greatly from bone aches or arthritis at this time. Her ultrasound did not show any kidney stones. At this point I would not recommend any intervention with regards to her overactive parathyroid gland especially in light of her having a previous parathyroidectomy. Further surgical intervention would probably prove difficult with her prior history of neck exploration. Regarding her vitamin D deficiency I am not sure that I would replace her vitamin D in light of the fact that her calcium level is in the high normal range and may even be in and of itself when her decreased albumin level is accounted for. Vitamin D supplementation may exacerbate her tendency towards hypercalcemia. Current Visit: Yes (2) Chronic kidney disease Status: Acute Assessment and plan: This patient has mild renal insufficiency, her creatinine has been around 1.4 mg /dL the past few checks. Current Visit: Yes (3) Hypophosphatemia Status: Acute Assessment and plan: This is mild, I am disinclined to replace her phosphorus it is secondary to her hyperparathyroidism Current Visit: Yes (4) Abdominal pain Status: Acute Current Visit: Yes (5) Essential hypertension Status: Chronic Current Visit: No
--- NOTE | 2016-12-20 09:04 | Nuclear Medicine Report ---
NM hepatobiliary Indication: Cholelithiasis Comparison: None Radiopharmaceutical: 5 mCi technetium 99m Choletec IV. Technique: Anterior dynamic images were acquired over the upper abdomen for a period of 1 hour following intravenous administration of the radiopharmaceutical. Subsequently, 1.27 mcg Kinevac injected intravenously with additional images of the upper abdomen acquired for 30 minutes. Gallbladder ejection fraction was calculated. Findings: Review of the images demonstrate prompt clearance of the radiopharmaceutical from the blood pool into the liver parenchyma. There is prompt progression of the isotope from the liver into the intrahepatic biliary ducts, common bile duct, and the gallbladder. Radiotracer is noted in the small bowel at the end of 60 minutes. Following administration of the gallbladder stimulating substance, calculated gallbladder ejection fraction was 6 % (normal > 35%). There was further radiotracer accumulation in the small bowel. IMPRESSION: Low gallbladder ejection fraction suggesting an element of gallbladder dysfunction. PROCEDURE INTERPRETED AT [facility] DEPARTMENT OF RADIOLOGY Final Report Signed by: Dr Hilario Horowitz
[2016-12-20] MEDS: LEVOTHYROXINE 150 MCG TABLET PO SCH (09:26)
[2016-12-20] MEDS: FLUTICASONE 50 MCG NASAL SPRAY 16 GM BOTTLE BOTH NARES SCH (09:27)
[2016-12-20] MEDS: CHOLECALCIFEROL 1,000 UNIT TABLET PO SCH (09:27)
[2016-12-20] MEDS: IPRATROPIUM 0.06% NASAL SPRAY 15 ML BOTTLE BOTH NARES SCH (09:27)
[2016-12-20] MEDS: CARVEDILOL 3.125 MG TABLET PO SCH (09:27)
[2016-12-20] MEDS: ASPIRIN EC 81 MG TABLET PO SCH (09:27)
[2016-12-20] MEDS: FAMOTIDINE 20 MG TABLET PO SCH (09:27)
[2016-12-20] MEDS: DICLOFENAC 1.3% PATCH 5/PACK TRANSDERM SCH (09:29)
--- NOTE | 2016-12-20 11:03 | Pulmonology Progress Note ---
Pulmonary - PN: Subj Interval history: Uriahjerald CaleroAliya, AGPCNP-BC, acting as scribe for Dr. Tobias Henry Ms. Ford is an 89-year-old white female who was direct admitted 12/17/2016. At the time of admission, our impressions were: 1. Intractable acute and recurrent nausea with decreased ability to eat and drink. Etiology undetermined. Seems to originate from the stomach. Consider delayed gastric emptying and pylorospasm. No past history of gastroesophageal reflux disease. Look for evidence of pancreatic dysfunction and look for evidence of cancer. We will also look at other areas including the central nervous system. 2. Left adnexal mass on CT of the abdomen done in August 2016 and ultrasound of the pelvis done October 2016. Repeat studies and compare. 3. Hypothyroid. Euthyroid on replacement. 4. Hypertension. Good control 5. Asthma. Good control 6. Rheumatoid arthritis and degenerative joint disease. Good control 7. 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 8. History of iron deficiency anemia 9. Arteriosclerotic heart disease. Stent placed April 2015. 10. Strong family history of Alzheimer's disease. See family history. 11. Past history of gastroesophageal reflux was suspected microaspiration exacerbating pulmonary problems. 12. 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 Patient was seen today along with her daughter and Sveta Huitron RN. The patient has been seen in GI consultation by Dr. Brooke. His note has been reviewed. He is planning on EGD this morning. The patient does report that she has not been "sick" since her arrival here. CT of the abdomen and pelvis showed diverticulosis coli, hepatomegaly with steatosis, questionable cholelithiasis, and a stable left adnexal cyst. CT of the head was done secondary to persistent nausea. This showed no acute intracranial abnormality, but probable chronic microvascular ischemic changes and volume loss. Ultrasound of the abdomen showed 2 small hepatic cyst within the left lobe with the largest measuring up to 1.4 cm. There was also a small volume cholelithiasis but no significant gallbladder distention or wall thickening. Also present was medical renal disease/renal atrophy without evidence of hydronephrosis. Transvaginal ultrasound showed a complex cystic mass within the left adnexal region measuring up to 4.8 x 2.3 x 3.2 cm. The radiologist, Dr. Lor, noted that considering changes in technique this ultrasound has not significantly changed from study dated 10/18/2016. As noted above, the patient has history of 2 large parathyroid tumors and hyperparathyroidism. PTH is elevated at 97.7, and we are going to consult Dr. Saavedra regarding this. CA-19- 9 is normal at 5.1. CA 125 is pending. Amylase and lipase are both normal at 40 and 117 respectively. Phosphorus is low at 2.3. We are also going to obtain a vitamin D level today. The patient listed Plavix as high medicine, however, on review of previous cardiology notes this medication was stopped by Dr. Hirsch approximately 2-3 months ago. We have again discontinued this medication. It was held yesterday. Medications been reviewed. Plavix discontinued as above. Labs been reviewed. Phosphorus 2.3, amylase 40, lipase 117, CA-19-9 5.1, TSH 0.918 and free T4 1.15, intact PTH 97.7; urinalysis showed no evidence of infection 12/19/2016. Patient was seen today along with her daughter and Sveta Huitron RN. Yesterday the patient underwent EGD by Dr. Brooke. This showed gastritis and biopsies were taken for H pylori which are pending. Dr. Brooke did note that the patient did not improve with proton pump inhibitors (an H pylori treatment if needed) for the next 2-3 weeks then we need to consider possible cholecystectomy. The ultrasound of the abdomen did show small volume cholelithiasis, so we have ordered a HIDA scan to be done in the morning. Patient's diet has been advanced and last night she was able to eat supper and she ate breakfast this morning and she has had no nausea, vomiting, or diarrhea. Nephrology consultation regarding her elevated PTH is pending. Vitamin D level was 24.4 consistent with insufficiency and we have started vitamin D3 2000 units daily. Medications have been reviewed. Labs been reviewed. 12/20/2016. The patient was seen today along with her daughter and Sveta Huitron RN. Earlier this morning patient underwent HIDA scan. This showed a low gallbladder ejection fraction approximately 6%. That said, the patient was able to eat supper last night and breakfast this morning without any nausea or vomiting. She feels markedly improved from the time of admission and feels back to her baseline. We are going to discharge her home today we will schedule her to follow-up with Dr. Brooke in approximately 3-4 weeks. Pathology from EGD showed chronic gastritis, focally active. H. pylori was not seen. She has been seen in nephrology consultation by Dr. Natarajan regarding her hypophosphatemia. His note has been reviewed and we appreciate his assistance. Medications have been reviewed. We made no changes today. Labs been reviewed. No new labs were drawn today. Exam (Progress Note) - Constitutional Vitals: Period Temp Pulse Resp BP Sys/House Pulse Ox Last 24 Hr 97.8 F-98.8 F 45-60 16-18 124-150/61-67 95-98 Exam: Chest is wheeze free Heart with a slight lateral PMI but without murmur, rub, or gallop Abdomen nontender and nondistended; bowel sounds are positive 4 Extremities with nothing to suggest acute deep venous thrombophlebitis Psychiatric oriented 3 Neurologic long-term motor function is intact Plan: The patient is now back to her baseline without nausea, vomiting, or diarrhea. She has met maximum hospital benefit and will be discharged home. Please see the discharge summary for more information. Results - Labs CBC & BMP: 12/17/16 07:45 12/17/16 07:45
--- NOTE | 2016-12-20 11:13 | Discharge Summary ---
Hospital Course - Hospital Course Hospital Course: Uriah Pisano, [facility], acting as scribe for Dr. Tobias Henry Mrs. Ford is an 89-year-old white female who was admitted 12/17/2016 with complaints of nausea, vomiting, diarrhea, and weight loss. She had just been seen 12/04/[facility] by Dr. Henry for the same complaints. She was having significant gastroesophageal reflux at the time. Several medication adjustments were made, but she had no improvement in her symptoms. Patient's daughter had called the office several times saying that the patient was not eating and "looks terrible". She was becoming acutely dehydrated and given her advanced age, multiple comorbidities, and acute illness was felt in her best interest to hospitalize her for very thorough evaluation and care. CT of the head done 12/17/2016 showed no acute intracranial abnormality, but there was probable chronic microvascular ischemic changes and volume loss. CT the abdomen and pelvis done 01/13/2017 showed diverticulosis coli, hepatomegaly with steatosis, questionable cholelithiasis, and stable left adnexal cyst. Abdominal ultrasound done 12/18/2016 showed 2 small hepatic cyst within the left lobe the largest measuring up to 1.4 cm. There is small volume cholelithiasis but no significant gallbladder distention or wall thickening. There is also medical renal disease/renal atrophy without evidence of hydronephrosis. Transvaginal ultrasound done 12/18/2016 showed a complex cystic mass within the left adnexal region measuring up to 4.8 x 2.3 x 3[address] Hilario Horowitz noted that considering changes in technique this is not significantly changed from the study dated 10/18/2016. Of note, this is followed by Dr. Lety III. She was seen in GI consultation by Dr. Brooke. On 12/18/2016 patient was taken for EGD by Dr. Brooke. This showed diffuse gastritis with biopsy showing focally active chronic gastritis. H. pylori was not seen. Dr. Brooke noted that the patient needed to continue her PPI but if she had no improvement in her symptoms over the next 2-3 weeks will probably need to consider cholecystectomy. At the time of discharge, the patient is tolerating a regular diet without nausea, vomiting, or diarrhea. We have scheduled her to follow-up with Dr. Brooke in approximately 3-4 weeks. Of note, HIDA scan done 12/20/2016 showed gallbladder ejection fraction of approximately 6%. 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 At admission, calcium was 10.0, phosphorus was low at 2.3, and PTH intact was elevated at 97.7. She was seen in nephrology consultation by Dr. Natarajan. He did not feel that any further intervention for primary hyperparathyroidism was needed at this time. At discharge, white count is 3400 with 44.0% segs, 37.3% lymphs, 11.4% monos; H& H 11.9/36.6 with normal indices and normal red blood cell distribution width; platelet count 184,000; creatinine 1.20, BUN 16, sodium 144, potassium 4.1, magnesium 2.4; calcium 10.0, albumin 3.3, total protein 6.0; liver function tests within normal limits; phosphorus 2.3; amylase 40, lipase 117, CA-19-9 5.1 , CA 125 6, vitamin D 24.4, PTH intact 97.7, TSH is normal at 0.918 and free T4 is normal at 1.15; urinalysis showed no evidence of infection. For more information regarding Mrs. Ford's past medical history, social history, family history, admit labs, admit x-ray and admit exam, please see the admission note dated 12/17/2016. Impression: 1. Intractable acute and recurrent nausea with decreased ability to eat and drink. Most likely secondary to diffuse chronic gastritis as seen on EGD, but also possibly secondary to gallbladder dysfunction is noted on HIDA scan. Nonetheless, presently improved. 2. Left adnexal mass on CT of the abdomen done in August 2016 and ultrasound of the pelvis done October 2016. Stable.. 3. Hypothyroid. Euthyroid on replacement. 4. Hypertension. Good control 5. Asthma. Good control 6. Rheumatoid arthritis and degenerative joint disease. Good control 7. 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 8. History of iron deficiency anemia 9. Arteriosclerotic heart disease. Stent placed April 2015. 10. Strong family history of Alzheimer's disease. See family history. 11. Past history of gastroesophageal reflux was suspected microaspiration exacerbating pulmonary problems. 12. History of 2 large parathyroid tumors previously removed in 1994 13. See past history Plan: Aspirin 81 mg daily, Coreg 3.125 mg twice daily, vitamin D3 2000 units daily, Pepcid 20 mg twice daily, Flonase 2 sprays in each nostril daily, Atrovent 2 sprays in each nostril 3 times daily, and Synthroid 150 mcg on Wednesdays and Fridays. She will be scheduled to follow with Dr. Brooke in approximately 3-4 weeks. She will be scheduled to follow with Dr. Pennington in approximately 6 months with a CBC, BMP, TSH, and chest x-ray. She could be seen sooner by another physician if needed. Specialty Discharge - Follow Up or Referrals Follow up with: Misbah Brooke MD [Physician] - (3-4 weeks) Tobias Henry MD [Primary Care Provider] - (06/20/17 at 1:00 (with CBC, BMP, TSH , and CXR)) Discharge Plan - Discharge Data Disposition: Disch To Home/Self Care Discharge Diet: advance to your usual diet Activity: resume usual activities as tolerated - Discharge Medications New Aspirin EC Tab 81 mg PO DAILY tablet Famotidine Tab [Pepcid Tab] 20 mg PO BID tablet Cholecalciferol [Vitamin D3] 2,000 unit PO DAILY #60 tablet Continue Carvedilol [Coreg] 3.125 mg PO BID #60 tablet Levothyroxine Tab [Synthroid Tab] 150 mcg PO DAILY Fluticasone Propionate [Fluticasone 50 mcg Nasal [place]] 2 spray BOTH NARES DAILY Ipratropium 0.06% Nasal [place] [Atrovent 0.06% Nasal [place]] 2 spray BOTH NARES TID Discontinued Donepezil [Aricept] 10 mg PO DAILY - Follow Up or Referral - Forms/Instructions Exam - Constitutional Vitals: Period Temp Pulse Resp BP Sys/House Pulse Ox Last 24 Hr 97.8 F-98.8 F 45-60 16-18 124-150/61-67 95-98 Discharge Results Labs on day of discharge: Labs from last 24 hours 12/17/16 12:39 CA 125 Antigen 6 DS: Provider Date of admission: 12/17/16 07:08 Primary care physician: Tobias Henry MD Attending physician on admission: Tobias Henry MD Consults: 12/17/16 08:25 Consult to Dietitian [CONS] Routine Reason for Dietitian: Other Consult Comment: wt loss 12/17/16 11:33 Consult to Physician [CONS] Routine Comment: n/v/weight loss; prev. Ford patient Consulting Provider: Misbah Brooke Person Notified: MD vernon Date Notified: 12/18/16 Time Notified: 18:03 12/18/16 11:12 Consult to Physician [CONS] Routine Comment: elevated PTH; hx hyperparathyroidism Consulting Provider: Constantine Saavedra Person Notified: pasha Date Notified: 12/19/16 Time Notified: 11:37 Consult Notification Comment: LEFT MESSAGE TO CALL ME BACK LEFT MESSAGE @11:10 ON 12/19/2016 Discharging clinician: JAQUAN Wayne
[2016-12-20 11:17] VITALS: BP 164/63
[2016-12-20] MEDS: DEXTROSE 5% NACL 0.45% 1,000 ML IV SCH (14:01)
--- NOTE | 2016-12-25 16:04 | Physician Query Form ---
CLICK EDIT DOCUMENT TO SELECT QUERY ANSWER --> OK --> SIGN Shannon Davison RN Clinical [employer] Librarian W) [phone] (f) [phone] [email or web address] PROVIDERS: Make your selection(s) from the choices in EACH section by typing an "x" and enter comments in the comment section. Please use your independent medical judgment in providing your response. This request does not imply that any particular answer is desired or expected. CLINICAL INDICATORS: (Providers should not edit this section) Based on documentation in the discharge summary of "history of DVT but not on any anticoagulation. She apparently was diagnosed again with DVT few days ago but was not on any meds. She was also started on eliquis for her DVT history though her dopplers are pending". Venous Doppler report states "No evidence of deep venous thrombosis within bilateral lower extremity". Based on the above, could you clarify the appropriate diagnosis, if significant , that supports the above abnormalities and additional evaluation, monitoring, and/or treatment rendered: ( ) Pt. has acute DVT ( ) Pt. has chronic DVT ( x) Pt. has history of DVT only ( ) Other, please specify: ( ) Clinically unable to determine COMMENTS: PLEASE ALSO DOCUMENT RESPONSE IN PROGRESS NOTES AND/OR DISCHARGE SUMMARY Use of terms such as suspected, likely, or probable (associated with a specific diagnosis that is being evaluated, monitored, or treated as if it exists) are acceptable and can be restated in the discharge summary if not ruled out. MTDD
== END 2016-12-20 14:15 | disposition home or self-care (01) | DRG 446 ==
LOC: N.5E 07:08
PROVIDERS: ADMIT Internal Medicine Pulmonary Disease; ATTEND Internal Medicine Pulmonary Disease